=== PATIENT | male | born 1980 ===

== ENCOUNTER 2018-05-06 23:23 | Emergency (ER) | payer OTHER ==
[2018-05-07] MEDS ORDERED: Bacitracin 500 Units/gm Oint Foilpak UD ONE (01:48)
[2018-05-07] MEDS ORDERED: Tdap Vaccine 0.5 ml Vial (10-64 yrs) IM ONE ×2 (01:52→02:14)
--- NOTE | 2018-05-07 01:55 | ED PDOC ---
HPI: Skin/Bite Injury Time Seen by Provider: 05/07/18 01:30 Chief Complaint (Nursing): Bite Chief Complaint (Provider): bite History Per: Patient History/Exam Limitations: no limitations Onset/Duration Of Symptoms: Hrs Current Symptoms Are (Timing): Still Present Additional Complaint(s): 37 y/o male presents for evaluation of mouse bite to left thumb x 3 hours. 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 Patient states he was wearing gloves. Denies numbness/weakness left upper extremity, limitation of movement. Last Tetanus unknown Past Medical History Reviewed: Historical Data, Nursing Documentation, Vital Signs Vital Signs: Last Vital Signs Temp 98.2 F 05/06/18 23:33 Pulse 67 05/06/18 23:33 Resp 18 05/06/18 23:33 BP 157/96 H 05/06/18 23:33 Pulse Ox 99 05/06/18 23:33 - Medical History PMH: No Chronic Diseases - Surgical History Surgical History: Hernia Repair - Family History Family History: States: No Known Family Hx - Living Arrangements Living Arrangements: With Family - Allergies Allergies/Adverse Reactions: Allergies Allergy/AdvReac Type Severity Reaction Status Date / Time No Known Allergies Allergy Verified 05/06/18 23:34 Review of Systems ROS Statement: Except As Marked, All Systems Reviewed And Found Negative Skin: Positive for: Other (mouse bite) Physical Exam - Reviewed Nursing Documentation Reviewed: Yes Vital Signs Reviewed: Yes - Physical Exam Appears: Positive for: Well, Non-toxic, No Acute Distress Head Exam: Positive for: ATRAUMATIC, NORMAL INSPECTION, NORMOCEPHALIC Skin: Positive for: Normal Color Pulses-Radial (L): 2+ Pulses-Radial (R): 2+ Extremity: Positive for: Normal ROM, Other (two small superficial puncture wounds distal left thumb; no bleeding, surrounding erythema/edema noted. FROM. Distal NV/motor intact) Neurological/Psych: Positive for: Awake, Alert, Oriented - ECG O2 Sat by Pulse Oximetry: 99 - Progress ED Course And Treament: -Adacel IM -wound care wound cleaned with NS, bacitracin applied, bandage applied Patient educated on wound care, advised follow up PMD within 2-3 days Return precautions given Disposition - Clinical Impression Clinical Impression: Bitten by mouse - Patient ED Disposition Is Patient to be Admitted: No Counseled Patient/Family Regarding: Diagnosis, Need For Followup - Disposition Referrals: [facility] [Outside] Disposition: Routine/Home Disposition Time: 01:56 Condition: GOOD Instructions: Animal Bites (DC)
[2018-05-07 02:21] VITALS: BP 126/75; PULSE 61; RESP 16; TEMP 98; O2SAT 98
== END 2018-05-07 02:20 | disposition home or self-care (01) ==
LOC: H.ER 23:23
DX: S61.052A Open bite of left thumb without damage to nail, initial encounter (principal); W53.01XA Bitten by mouse, initial encounter; Z23 Encounter for immunization